=== PATIENT | female | born 1955 ===

== ENCOUNTER 2018-11-11 11:23 | Emergency (ER) | payer MEDICAID ==
[2018-11-11 11:26] VITALS: BMI 29.0
[2018-11-11 11:28] VITALS: RESP 18; O2SAT 100
[2018-11-11] MEDS ORDERED: Oxycodone/Acetaminophen 5/325 mg Tab PO STA (11:43)
--- NOTE | 2018-11-11 11:48 | ED PDOC ---
Upper Extremity Pain/Injury Time Seen by Provider: 11/11/18 11:29 Chief Complaint (Nursing): Back Pain Chief Complaint (Provider): Right shoulder pain, fell last night History Per: Patient History/Exam Limitations: no limitations Onset/Duration Of Symptoms: Days Current Symptoms Are (Timing): Still Present Additional Complaint(s): 63 yo female with hx of HTN returns to ER for evaluation of right shoulder pain. Pt was seen in [facility] last night after a fall in the bath tube. Pt states they told her XR was normal. Pt states she took motrin and tylenol yeste rday in ER and it did not help the pain. PT was than prescribed motrin and tylenol at home. Pt is not wearing sling which was provided yesterday. Pt took only motrin this morning. No numbness/tingling. Past Medical History Reviewed: Historical Data, Nursing Documentation, Vital Signs Vital Signs: Last Vital Signs Temp 98 F 11/11/18 11:27 Pulse 68 11/11/18 11:27 Resp 18 11/11/18 11:27 BP 174/87 H 11/11/18 11:27 Pulse Ox 100 11/11/18 11:27 - Medical History PMH: Depression, HTN Denies: Chronic Kidney Disease - Surgical History Surgical History: No Surg Hx - Family History Family History: States: No Known Family Hx - Living Arrangements Living Arrangements: With Family - Immunization History Hx Influenza Vaccination: No Hx Pneumococcal Vaccination: No - Home Medications Home Medications: Ambulatory Orders Medication Instructions Recorded Acetaminophen [Tylenol 325mg tab] 650 mg PO Q4 #50 tab 11/10/18 Atenolol 50 mg PO DAILY 11/10/18 Ibuprofen [Motrin] 600 mg PO TID #30 tab 11/10/18 oxyCODONE/Acetaminophen [Percocet 1 ea PO Q6H PRN #15 tab 11/11/18 5/325 mg Tab] - Allergies Allergies/Adverse Reactions: Allergies Allergy/AdvReac Type Severity Reaction Status Date / Time No Known Allergies Allergy Verified 11/10/18 10:02 Review of Systems ROS Statement: Except As Marked, All Systems Reviewed And Found Negative Constitutional: Negative for: Fever, Chills Musculoskeletal: Positive for: Shoulder Pain (Right) Skin: Negative for: Rash, Lesions Physical Exam - Reviewed Nursing Documentation Reviewed: Yes Vital Signs Reviewed: Yes - Physical Exam Appears: Positive for: Well, Non-toxic, No Acute Distress Head Exam: Positive for: ATRAUMATIC, NORMAL INSPECTION, NORMOCEPHALIC Skin: Positive for: Normal Color, Warm, DRY Eye Exam: Positive for: Normal appearance ENT: Positive for: Normal ENT Inspection Neck: Positive for: Normal, Painless ROM Cardiovascular/Chest: Negative for: Bradycardia, Tachycardia Respiratory: Negative for: Accessory Muscle Use, Respiratory Distress Back: Positive for: Normal Inspection Extremity: Positive for: Normal ROM. Negative for: Tenderness, Deformity, Swelling Neurologic/Psych: Positive for: Alert, Oriented - ECG O2 Sat by Pulse Oximetry: 100 Medical Decision Making Medical Decision Making: XR reviewed from yesterday's visit. (-) acute fracture or dislocation, (+) degenerative arthritis Percocet PO in ER Disposition - Clinical Impression Clinical Impression: Right shoulder injury - Patient ED Disposition Is Patient to be Admitted: No - Disposition Referrals: Solo Crowe MD [Medical Doctor] - Disposition: Routine/Home Disposition Time: 12:55 Condition: GOOD Prescriptions: oxyCODONE/Acetaminophen [Percocet 5/325 mg Tab] 1 ea PO Q6H PRN #15 tab PRN Reason: Pain, Severe (8-10) Instructions: Shoulder Sprain (DC) Forms: Fanne[employer] (D[place]ib[place]ian)
[2018-11-11] MEDS ORDERED: Oxycodone/Acetaminophen 5/325 mg Tab ONE (11:57)
[2018-11-11 13:30] VITALS: BP 150/49; PULSE 65; TEMP 97.6
== END 2018-11-11 13:30 | disposition home or self-care (01) ==
LOC: H.ER 11:23
DX: S49.91XA Unspecified injury of right shoulder and upper arm, initial encounter (principal); W19.XXXA Unspecified fall, initial encounter; Y92.002 Bathroom of unspecified non-institutional (private) residence as the place of occurrence of the external cause; I10 Essential (primary) hypertension